=== PATIENT | female | born 1990 | race American Indian/Alaskan Native ===

== ENCOUNTER 2017-04-16 12:34 | Emergency (ER) | payer MEDICAID ==
--- NOTE | 2017-04-16 14:05 | EDM.PDOC ---
[id number] TICKS IN TEARS DUCTS Time Seen by Provider: 04/16/17 13:35 Source of Information: Reports: Patient, Old Records, RN, RN Notes Reviewed History Limitations: Reports: Intoxication - History of Present Illness INITIAL COMMENTS - FREE TEXT/NARRATIVE: Pt appears to be intoxicated by a stimulant of some type, likely methamphetamine. She arrives to ER by POV with c/o "wood ticks invading my tear ducts". Pt states her eyes have been red, watery, and itchy, so "it must be that it's wood ticks". Pt is not able to provide any further relevant history. Onset: Unknown/Unsure Location: Reports: Other (eyes) Severity: Moderate Improves with: Reports: None Worsens with: Reports: None - Related Data Allergies Allergy/AdvReac Type Severity Reaction Status Date / Time No Known Allergies Allergy Verified 04/16/17 13:45 Home Meds: Home Meds Acetaminophen [Tylenol Extra Strength] 1,000 mg PO DAILY PRN 01/27/15 [History] Past Medical History [employer] History: Reports: Other (See Below) Other OB/BYN History: cyst on ovaries Psychiatric History: Reports: Addiction Social & Family History - Family History Family Medical History: Noncontributory - Tobacco Use Smoking Status *Q: Current Every Day Smoker Years of Tobacco use: 1 Packs/Tins Daily: 13 Used Tobacco, but Quit: No Second Hand Smoke Exposure: No - Caffeine Use Caffeine Use: Reports: Coffee, Soda - Alcohol Use Days Per Week of Alcohol Use: 0 - Recreational Drug Use Recreational Drug Use: Yes Drug Use in Last 12 Months: Yes Recreational Drug Type: Reports: Marijuana/Hashish, Methamphetamine Recreational Drug Use Frequency: Daily - Living Situation & Occupation Living situation: Reports: with Family ED ROS ENT - Review of Systems Review Of Systems: ROS reveals no pertinent complaints other than HPI. ED EXAM, ENT - Physical Exam Exam: See Below Exam Limited By: Intoxication General Appearance: Alert, WD/WN, No Apparent Distress, Anxious Eye Exam: Bilateral Eye: Conjunctival Injection, EOMI Ears: Normal External Exam, Normal Canal, Hearing Grossly Normal, Normal TMs Nose: Nasal Discharge (clear/mild) Mouth/Throat: Normal Inspection Head: Atraumatic, Normocephalic Respiratory/Chest: No Respiratory Distress, Lungs Clear, Normal Breath Sounds, No Accessory Muscle Use, Chest Non-Tender Cardiovascular: Regular Rate, Rhythm Neurological: Alert, Oriented, CN II-XII Intact, No Motor/Sensory Deficits Psychiatric: Anxious ("tweaking") Skin: Warm, Dry, Intact, Normal Color, No Rash Course - Vital Signs Last Recorded V/S: Last Vital Signs Temp 36.4 C 04/16/17 13:46 Pulse 70 04/16/17 13:46 Resp 18 04/16/17 13:46 BP 140/82 04/16/17 13:46 Pulse Ox 96 04/16/17 13:46 Departure - Departure Time of Disposition: 14:02 Disposition: Home, Self-Care 01 Condition: Good Clinical Impression: Methamphetamine abuse Allergic rhinitis Qualifiers: Chronicity: acute Allergic rhinitis trigger: unspecified Allergic rhinitis seasonality: seasonal Qualified Code(s): J30.2 - Other seasonal allergic rhinitis - Discharge Information Instructions: Allergic Rhinitis, Stimulant Use Disorder-Methamphetamines, Finding Treatment for Addiction Forms: ED Department Discharge Additional Instructions: Rx: Zyrtec 10mg Stop using drugs. Go to a treatment program if you are unable to quit on your own. Follow up in clinic in 1 week for recheck.
== END 2017-04-16 14:13 | disposition home or self-care (01) ==
LOC: DL.ED 12:34
CPT/HCPCS: 99282

== ENCOUNTER 2017-10-15 14:41 | Emergency (ER) | payer SELFPAY ==
[2017-10-15] MEDS ORDERED: GI Cocktail Oral Solution 30 ML PO ONE (15:32)
[2017-10-15 16:08] LABS: CHLORIDE,CL 103 mmol/L (101-111); SODIUM,NA 138 mmol/L (135-145)
[2017-10-15 16:12] VITALS: BP 124/82
[2017-10-15] MEDS ORDERED: Pantoprazole 40 MG Vial IVPUSH ONE (16:26)
[2017-10-15] MEDS ORDERED: Azithromycin 250 MG Tab PO ONE (16:26)
[2017-10-15] MEDS ORDERED: cefTRIAXone 250 MG Vial IM ONE (16:27)
[2017-10-15] MEDS ORDERED: Lidocaine 1% 30 ML SDV INJECT ONE (16:57)
[2017-10-15] MEDS ORDERED: Lidocaine 1% 10 ML MDV INJECT ONE (16:57)
[2017-10-15] MEDS ORDERED: Pantoprazole 40 MG Tab.CR PO ONE (16:57)
--- NOTE | 2017-10-15 17:08 | EDM.PDOC ---
Scribed by Cate Luu 10/15/17 [id number] for Juan R Pool MD ED HPI GENERAL MEDICAL PROBLEM - General Chief Complaint: Chest Pain Stated Complaint: [id number] CHEST PAIN Time Seen by Provider: 10/15/17 15:00 Source of Information: Reports: Patient, RN, RN Notes Reviewed History Limitations: Reports: No Limitations - History of Present Illness INITIAL COMMENTS - FREE TEXT/NARRATIVE: Patient [facility] the [facility] with complaint of lower midline chest pain which began 1 week ago and was intermittent at first but constant most of today. Patient entered the [facility] 1 and 1-1/2 weeks ago for treatment of meth abuse. She admits to meth use since the age of 19 years and to IV use x3 years. She last used IV meth just before entering the [facility]. Patient admits to mild intermittent nausea and possible STD exposure. Denies fever, chills, cough, sore throat, vomiting, diarrhea or urinary symptoms. Location: Reports: Chest Quality: Reports: Ache Severity: Moderate Improves with: Reports: None Worsens with: Reports: None Associated Symptoms: Reports: No Other Symptoms Left Upper Chest Pain Score (Numeric/FACES): 5 - Related Data Allergies Allergy/AdvReac Type Severity Reaction Status Date / Time No Known Allergies Allergy Verified 04/16/17 13:45 Home Meds: Home Meds Acetaminophen [Tylenol Extra Strength] 1,000 mg PO DAILY PRN 01/27/15 [History] Past Medical History [employer] History: Reports: Other (See Below) Other OB/BYN History: cyst on ovaries Psychiatric History: Reports: Addiction Social & Family History - Family History Family Medical History: Noncontributory - Tobacco Use Smoking Status *Q: Current Every Day Smoker Years of Tobacco use: 1 Packs/Tins Daily: 13 Used Tobacco, but Quit: No Second Hand Smoke Exposure: No - Caffeine Use Caffeine Use: Reports: Coffee, Soda - Alcohol Use Days Per Week of Alcohol Use: 0 - Recreational Drug Use Recreational Drug Use: Yes Drug Use in Last 12 Months: Yes Recreational Drug Type: Reports: Marijuana/Hashish, Methamphetamine Recreational Drug Use Frequency: Daily - Living Situation & Occupation Living situation: Reports: with Family ED ROS GENERAL - Review of Systems Review Of Systems: ROS reveals no pertinent complaints other than HPI. ED EXAM, GENERAL - Physical Exam Exam: See Below Exam Limited By: No Limitations General Appearance: Alert, WD/WN, No Apparent Distress Eye Exam: Bilateral Eye: Normal Inspection Ears: Normal External Exam, Normal Canal, Hearing Grossly Normal, Normal TMs Nose: Normal Inspection, Normal Mucosa, No Blood Throat/Mouth: Normal Inspection, Normal Lips, Normal Teeth, Normal Gums, Normal Oropharynx, Normal Voice, No Airway Compromise Head: Atraumatic, Normocephalic Neck: Normal Inspection, Supple, Non-Tender, Full Range of Motion Respiratory/Chest: No Respiratory Distress, Lungs Clear, Normal Breath Sounds, No Accessory Muscle Use, Chest Non-Tender Cardiovascular: Normal Peripheral Pulses, Regular Rate, Rhythm, No Edema, No Gallop, No JVD, No Murmur, No Rub GI/Abdominal: Other (normal except mild epigastric tenderness.) (Female) Exam: Deferred Rectal (Female) Exam: Deferred Back Exam: Normal Inspection, Full Range of Motion, NT Extremities: Normal Inspection, Normal Range of Motion, Non-Tender, Normal Capillary Refill, No Pedal Edema Neurological: Alert, Oriented, CN II-XII Intact, Normal Cognition, Normal Gait, Normal Reflexes, No Motor/Sensory Deficits Psychiatric: Normal Affect, Normal Mood Skin Exam: Warm, Dry, Intact, Normal Color, No Rash EKG INTERPRETATION EKG Date: 10/15/17 Time: 15:26 Rhythm: Other (sinus rhythm) Rate (Beats/Min): 74 [place]: Normal P-Wave: Present QRS: Normal ST-T: Normal QT: Normal Course - Vital Signs Last Recorded V/S: Last Vital Signs Temp 37.3 C 10/15/17 16:32 Pulse 77 10/15/17 16:32 Resp 16 10/15/17 16:32 BP 124/82 10/15/17 16:32 Pulse Ox 100 10/15/17 16:32 - Orders/Labs/Meds Orders: Active Orders 24 hr Category Date Time Status EKG 12 Lead [EKG Documentation Completion] [RC] STAT Care 10/15/17 15:24 Active Chest 2V [CR] Stat Exams 10/15/17 15:25 Taken CHLAMYDIA/GC NUCLEIC ACID AMP [MREF] Routine Lab 10/15/17 16:21 Ordered Labs: Laboratory Tests 10/15/17 10/15/17 10/15/17 Range/Units 15:38 15:38 15:38 WBC 8.6 (5.0-10.0) 10^3/uL RBC 4.43 (4.2-5.4) 10^6/uL Hgb 14.3 D (12.0-16.0) g/dL Hct 42.2 (37.0-47.0) % MCV 95.3 D (80-100) fL MCH 32.3 (27.0-34.0) pg MCHC 33.9 (33.0-35.0) g/dL Plt Count 331 (150-450) 10^3/uL Neut % (Auto) 57.4 (42.2-75.2) % Lymph % (Auto) 23.9 (20.5-50.1) % [place] % (Auto) 6.9 (2-8) % Eos % (Auto) 11.5 H (1.0-3.0) % Baso % (Auto) 0.3 (0.0-1.0) % D-Dimer, Quantitative < 100 (0-400) ng/mL Sodium 138 (135-145) mmol/L Potassium 4.1 (3.6-5.0) mmol/L Chloride 103 (101-111) mmol/L Carbon Dioxide 25.0 (21.0-31.0) mmol/L Anion Gap 14.1 BUN 16 (7-18) mg/dL Creatinine 0.8 (0.6-1.3) mg/dL Est Cr Clr Drug Dosing 93.18 mL/min Estimated GFR (MDRD) > 60 BUN/Creatinine Ratio 20.00 Glucose 88 (74-105) mg/dL Calcium 9.5 (8.4-10.2) mg/dl Total Bilirubin 0.4 (0.2-1.0) mg/dL AST 19 (10-42) IU/L ALT 19 (10-60) IU/L Alkaline Phosphatase 58 (42-121) IU/L Troponin I < 0.02 (0.00-0.02) ng/ml Total Protein 7.4 (6.7-8.2) g/dl Albumin 4.3 (3.2-5.5) g/dl Globulin 3.1 Albumin/Globulin Ratio 1.39 Amylase 82 (28-100) U/L Lipase 31 (22-51) U/L Urine Color (YELLOW) Urine Appearance (CLEAR) Urine pH (5.0-9.0) Ur Specific [place] (1.005-1.030) Urine Protein (NEGATIVE) Urine Glucose (UA) (NEGATIVE) Urine Ketones (NEGATIVE) Urine Occult Blood (NEGATIVE) Urine Nitrite (NEGATIVE) Urine Bilirubin (NEGATIVE) Urine Urobilinogen (0.2-1.0) mg/dL Ur Leukocyte Esterase (NEGATIVE) Urine RBC /HPF Urine WBC (0-5/HPF) /HPF Ur Epithelial Cells /HPF Amorphous Sediment (0/HPF) /HPF Urine Bacteria (0-FEW/HPF) /HPF Urine Mucus /LPF Urine HCG, Qual Urine Opiates Screen (NEGATIVE) Ur Oxycodone Screen (NEGATIVE) Urine Methadone Screen (NEGATIVE) Ur Barbiturates Screen (NEGATIVE) U Tricyclic Antidepress (NEGATIVE) Ur Phencyclidine Scrn (NEGATIVE) Ur Amphetamine Screen (NEGATIVE) U Methamphetamines Scrn (NEGATIVE) Urine MDMA Screen (NEGATIVE) U Benzodiazepines Scrn (NEGATIVE) Urine Cocaine Screen (NEGATIVE) U Marijuana (THC) Screen (NEGATIVE) 10/15/17 10/15/17 10/15/17 Range/Units 15:57 15:57 15:57 WBC (5.0-10.0) 10^3/uL RBC (4.2-5.4) 10^6/uL Hgb (12.0-16.0) g/dL Hct (37.0-47.0) % MCV (80-100) fL MCH (27.0-34.0) pg MCHC (33.0-35.0) g/dL Plt Count (150-450) 10^3/uL Neut % (Auto) (42.2-75.2) % Lymph % (Auto) (20.5-50.1) % [place] % (Auto) (2-8) % Eos % (Auto) (1.0-3.0) % Baso % (Auto) (0.0-1.0) % D-Dimer, Quantitative (0-400) ng/mL Sodium (135-145) mmol/L Potassium (3.6-5.0) mmol/L Chloride (101-111) mmol/L Carbon Dioxide (21.0-31.0) mmol/L Anion Gap BUN (7-18) mg/dL Creatinine (0.6-1.3) mg/dL Est Cr Clr Drug Dosing mL/min Estimated GFR (MDRD) BUN/Creatinine Ratio Glucose (74-105) mg/dL Calcium (8.4-10.2) mg/dl Total Bilirubin (0.2-1.0) mg/dL AST (10-42) IU/L ALT (10-60) IU/L Alkaline Phosphatase (42-121) IU/L Troponin I (0.00-0.02) ng/ml Total Protein (6.7-8.2) g/dl Albumin (3.2-5.5) g/dl Globulin Albumin/Globulin Ratio Amylase (28-100) U/L Lipase (22-51) U/L Urine Color Yellow (YELLOW) Urine Appearance Slightly cloudy (CLEAR) Urine pH 7.5 (5.0-9.0) Ur Specific [place] 1.015 (1.005-1.030) Urine Protein Negative (NEGATIVE) Urine Glucose (UA) Negative (NEGATIVE) Urine Ketones Negative (NEGATIVE) Urine Occult Blood Moderate H (NEGATIVE) Urine Nitrite Negative (NEGATIVE) Urine Bilirubin Negative (NEGATIVE) Urine Urobilinogen 0.2 (0.2-1.0) mg/dL Ur Leukocyte Esterase Small H (NEGATIVE) Urine RBC 5-10 H /HPF Urine WBC 5-10 H (0-5/HPF) /HPF Ur Epithelial Cells Many H /HPF Amorphous Sediment Moderate H (0/HPF) /HPF Urine Bacteria Moderate H (0-FEW/HPF) /HPF Urine Mucus Few H /LPF Urine HCG, Qual Negative Urine Opiates Screen Negative (NEGATIVE) Ur Oxycodone Screen Negative (NEGATIVE) Urine Methadone Screen Negative (NEGATIVE) Ur Barbiturates Screen Negative (NEGATIVE) U Tricyclic Antidepress Negative (NEGATIVE) Ur Phencyclidine Scrn Negative (NEGATIVE) Ur Amphetamine Screen Negative (NEGATIVE) U Methamphetamines Scrn Negative (NEGATIVE) Urine MDMA Screen Negative (NEGATIVE) U Benzodiazepines Scrn Negative (NEGATIVE) Urine Cocaine Screen Negative (NEGATIVE) U Marijuana (THC) Screen Positive H (NEGATIVE) Meds: Medications Discontinued Medications Generic Name Dose Route Start Last Admin Trade Name Freq PRN Reason Stop Dose Admin Al Hydroxide/Mg Hydroxide 30 ml 10/15/17 15:32 10/15/17 16:10 Gi Cocktail PO 10/15/17 15:33 30 ml ONETIME ONE Administration Azithromycin 1,000 mg 10/15/17 16:26 10/15/17 17:06 Zithromax PO 10/15/17 16:27 1,000 mg ONETIME ONE Administration Ceftriaxone Sodium 250 mg 10/15/17 16:27 Rocephin IM 10/15/17 16:28 ONETIME ONE Lidocaine HCl 30 ml 10/15/17 16:57 Xylocaine-Mpf 1% INJECT 10/15/17 16:58 ONETIME ONE Lidocaine HCl 2.1 ml 10/15/17 16:57 Xylocaine 1% INJECT 10/15/17 16:58 ONETIME ONE Pantoprazole Sodium 40 mg 10/15/17 16:26 Protonix Iv IVPUSH 10/15/17 16:27 ONETIME ONE Pantoprazole Sodium 40 mg 10/15/17 16:57 Protonix PO 10/15/17 16:58 ONETIME ONE - Radiology Interpretation Free Text/Narrative:: Chest x-ray: Normal. See rad report. Departure - Departure Time of Disposition: 17:07 Disposition: Home, Self-Care 01 Clinical Impression: Non-cardiac chest pain, STD exposure Gastritis Qualifiers: Gastritis type: unspecified gastritis Chronicity: acute Gastritis bleeding: without bleeding Qualified Code(s): K29.00 - Acute gastritis without bleeding Instructions: Gastritis, Adult, [id number], Sexually Transmitted Disease, [id number], Nonspecific Chest Pain, [id number] Forms: ED Department Discharge Additional Instructions: RX: Omeprazole 20mg. Follow up in clinic in 1 week for recheck. - My Orders Last 24 Hours: My Active Orders 10/15/17 15:24 EKG 12 Lead [EKG Documentation Completion] [RC] STAT 10/15/17 15:25 Chest 2V [CR] Stat 10/15/17 16:21 CHLAMYDIA/GC NUCLEIC ACID AMP [MREF] Routine - Assessment/Plan Last 24 Hours: My Active Orders 10/15/17 15:24 EKG 12 Lead [EKG Documentation Completion] [RC] STAT 10/15/17 15:25 Chest 2V [CR] Stat 10/15/17 16:21 CHLAMYDIA/GC NUCLEIC ACID AMP [MREF] Routine I have read and agree with the documentation that has been completed regarding this visit. By signing this record, I attest that the documentation was completed in my physical presence and is an accurate record of the encounter.
--- NOTE | 2017-10-18 12:47 | EKG ---
10/15/2017 - LULI GONZALES - A 12-lead EKG shows normal sinus rhythm with heart rate of 74. No significant ST elevation or ST depression noted on this 12-lead EKG. Nonspecific ST-T wave changes noted on lead V2 and V3. [facility] /[id number]
== END 2017-10-15 17:25 | disposition home or self-care (01) ==
LOC: DL.ED 14:41
DX: K29.00 Acute gastritis without bleeding (principal); R07.89 Other chest pain; Z20.2 Contact with and (suspected) exposure to infections with a predominantly sexual mode of transmission; F17.210 Nicotine dependence, cigarettes, uncomplicated; Z79.899 Other long term (current) drug therapy
CPT/HCPCS: 36415; 71020; 80053; 80305; 81001; 81025; 82150; 83690; 84484; 85025; 85379; 87491; 87591; 93005; 93010; 96372; 99284; A9270; J0696

== ENCOUNTER 2018-01-21 13:32 | Emergency (ER) | payer SELFPAY | END 2018-01-21 15:50 | disposition left against medical advice (07) | LOC: DL.ED 13:32 | DX: Z53.21 Procedure and treatment not carried out due to patient leaving prior to being seen by health care provider (principal) ==